=== PATIENT | male | born 1945 | race Caucasian/White ===

== ENCOUNTER 2019-08-09 10:00 | Outpatient (RCR) | payer SELFPAY | END 2019-08-09 23:59 | disposition home or self-care (01) | LOC: ANHAUDIO 10:00 | DX: Z46.1 Encounter for fitting and adjustment of hearing aid (principal) | CPT/HCPCS: 92593 ==

== ENCOUNTER 2020-03-05 08:58 | Outpatient (RCR) | payer SELFPAY | END 2020-03-05 23:59 | disposition home or self-care (01) | LOC: ANHAUDIO 08:58 | DX: Z46.1 Encounter for fitting and adjustment of hearing aid (principal) | CPT/HCPCS: 92593 ==

== ENCOUNTER 2020-07-03 09:02 | Outpatient (RCR) | payer SELFPAY | END 2020-10-01 23:59 | disposition home or self-care (01) | LOC: ANHBWCAUD 09:02 | DX: Z46.1 Encounter for fitting and adjustment of hearing aid (principal) | CPT/HCPCS: 92593 ==